=== PATIENT | male | born 1960 | race Caucasian/White ===

== ENCOUNTER 2016-02-21 02:09 | Emergency (ER) | payer BC ==
[~2016-02-21] VITALS: Ht 182.9 cm; Wt 82.0 kg
[~2016-02-21 02:09] MED LIST: DULOXETINE HCL30 MG PO; FLEXERIL10 MG PO; MOTRIN800 MG PO; PERCOCET 5/31 TABLET PO
[2016-02-21 02:48] LABS: HEMATOCRIT 35.3 % (38.0-50.0); MCH 24.8 PG (29.0-34.0); MCV 77.6 FL (86-99); MEAN PLAT.VOLUME 9.4 uM^3 (9.0-12.4); PLATELET COUNT 389 K/uL (156-360); RBC DIS.WIDTH-CV 17.5 % (11.8-14.6); RBC DIS.WIDTH-SD 47.6 % (39-53); RED BLOOD COUNT 4.55 M/uL (4.00-5.50); WHITE BLOOD COUNT 9.2 K/uL (4.1-10.2)
[2016-02-21 02:56] LABS: CHLORIDE 110 mEq/L (99-109); POTASSIUM 3.5 mEq/L (3.7-5.4); SODIUM 141 mEq/L (136-147)
[2016-02-21 02:59] LABS: ANION GAP 8 MEQ/L (2-14)
[2016-02-21 03:02] LABS: GFR ESTIMATE (CALCULATED) > 59 mL/min/; UREA NITROGEN (BUN) 14 mg/dL (9-23)
[2016-02-21 03:15] LABS: GLUCOSE 166 mg/dL (70-99)
[2016-02-21 03:17] LABS: TOTAL BILIRUBIN 0.3 mg/dL (0.0-1.0)
[2016-02-21 03:19] LABS: ALKALINE PHOSPHATASE 77 IU/L (3-129)
[2016-02-21 03:21] LABS: DIRECT BILIRUBIN 0.1 mg/dL (0.0-0.3)
[2016-02-21 03:22] LABS: LIPASE 75 U/L (1.0-51.0)
[2016-02-21 03:51] LABS: ANISOCYTOSIS 1+; EOSINOPHIL COUNT 0.3 K/uL (0-0.3); HEMATOLOGY COMMENT 1 REV; IMMATURE GRANULOCYTE (%) 0.1 % (0.0-0.7); IMMATURE GRANULOCYTE COUNT 0.1 K/uL; LYMPHOCYTE COUNT 3.9 K/uL (1.0-2.8); MACROCYTES 1+; MICROCYTOSIS FEW; MONOCYTE (%) 13.2 % (3-12); MONOCYTE COUNT 1.2 K/uL (0-0.8); NEUTROPHIL (%) 41.6 % (45-76); NEUTROPHIL COUNT 3.9 K/uL (1.8-6.4); OVALOCYTES 1+; PLAT.SUFFICIENCY ADEQUATE; SCHISTOCYTES FEW
[2016-02-21 04:03] LABS: ADD MIUA? NO; BILIRUBIN NEGATIVE; BLOOD NEGATIVE; COLOR YELLOW ((YELLOW)); GLUCOSE (STRIP) NEGATIVE; KETONES NEGATIVE; LEUKOCYTES NEGATIVE; NITRITE NEGATIVE; PROTEIN (STRIP) NEGATIVE; SPECIFIC GRAVITY 1.013 (1.000-1.030); UCUL ADDED? NO; UROBILINOGEN 0.2 MG/DL (0.2-1.0)
[2016-02-21] MEDS ORDERED: PERCOCET 5/31 TABLET PO (04:26)
[2016-02-21] MEDS ORDERED: ZOFRAN4 MG PO (04:26)
[2016-02-21 04:46] VITALS: BP 142/75
== END 2016-02-21 04:47 | disposition home or self-care (01) ==
LOC: EME 02:09 → EXP 02:09
DX: N20.1 Calculus of ureter (principal); R11.2 Nausea with vomiting, unspecified; Z88.1 Allergy status to other antibiotic agents; E78.5 Hyperlipidemia, unspecified; K21.9 Gastro-esophageal reflux disease without esophagitis; D64.9 Anemia, unspecified
CPT/HCPCS: 74176; 80048; 80076; 81003; 83690; 85025; 85027; 99281; 99284; J1885; J2270; J2405

== ENCOUNTER 2017-03-04 08:57 | Emergency (ER) | payer BC ==
[~2017-03-04] VITALS: Ht 185.4 cm; Wt 88.0 kg
[~2017-03-04 08:57] MED LIST changes: +ZOFRAN4 MG PO
[2017-03-04 09:40] LABS: HEMATOCRIT 46.8 % (38.0-50.0); HEMOGLOBIN 15.7 G/DL (12.5-16.6); MCH 31.2 PG (29.0-34.0); MCHC 33.5 G/DL (30.0-36.0); MCV 92.9 FL (86-99); PLATELET COUNT 334 K/uL (156-360); RBC DIS.WIDTH-CV 12.8 % (11.8-14.6); RBC DIS.WIDTH-SD 43.4 % (39-53); RED BLOOD COUNT 5.04 M/uL (4.00-5.50); WHITE BLOOD COUNT 5.7 K/uL (4.1-10.2)
[2017-03-04 09:48] LABS: CHLORIDE 109 mEq/L (99-109); POTASSIUM 4.7 mEq/L (3.7-5.4); SODIUM 140 mEq/L (136-147)
[2017-03-04 09:50] LABS: GLUCOSE 104 mg/dL (70-99)
[2017-03-04 09:54] LABS: CREATININE 0.8 mg/dL (0.6-1.3); GFR ESTIMATE (CALCULATED) > 59 mL/min/ (58.99-99999)
[2017-03-04 09:55] LABS: UREA NITROGEN (BUN) 17 mg/dL (9-23)
[2017-03-04 10:00] LABS: TROP-I INTERPRETATION NEGATIVE; TROPONIN-I < 0.01 ng/mL (0.0-0.30)
[2017-03-04 13:32] LABS: TROP-I INTERPRETATION NEGATIVE; TROPONIN-I < 0.01 ng/mL (0.0-0.30)
[2017-03-04 14:01] VITALS: BP 128/78
== END 2017-03-04 14:03 | disposition home or self-care (01) ==
LOC: EME 08:57
PROVIDERS: Physician Assistant
DX: R07.89 Other chest pain (principal); K21.9 Gastro-esophageal reflux disease without esophagitis; E78.5 Hyperlipidemia, unspecified; Z88.0 Allergy status to penicillin; Z88.1 Allergy status to other antibiotic agents
CPT/HCPCS: 71046; 80048; 84484; 85027; 93005; 99281; 99284